=== PATIENT | female | born 1925 | race Caucasian/White ===

== ENCOUNTER 2016-10-02 09:43 | Inpatient (IN) | payer MEDICARE, BC ==
[~2016-10-02 09:43] MED LIST: ACTONEL35 MG PO; ALDACTAZIDE 251 EAC1 PO; ASPIRIN EC81 MG PO; CITRACAL200 MG PO; FISH OIL + D31 EACH PO; LOPRESSOR25 MG/TA1 PO; VITAMIN D1000 UNIT PO; ZINC50 M2 PO; [UNRECOGNIZED DRUG - OTHER] OP
[2016-10-02 10:25] LABS: BASO % 0.1 % (0-2); EOS % 0.6 % (0-7); EOSINOPHIL ABSOLUTE COUNT 0.1 tho/cmm (0.0-0.7); HCT-HEMATOCRIT 40.5 % (34.0-49.0); HGB-HEMOGLOBIN 14.2 gm/dl (12.0-15.5); IMMATURE GRANULOCYTES ABSOLUTE 0.06 tho/cmm (0-0.03); IMMATURE GRANULOCYTES PERCENT 0.4 % (0-0.3); LYMPH % 12.6 % (20-45); MCH (MEAN CORPUSCULAR HGB) 32.6 pg (28.0-32.0); MCHC MEAN CORPUSCULAR HGB CONC 35.1 % (32.0-36.0); MCV (MEAN CELL VOLUME) 93.1 fl (82.0-96.0); MEAN PLATELET VOLUME 10.5 cmc (9.4-12.4); MONOCYTE ABSOLUTE COUNT 1.7 tho/cmm (0.0-1.2); NEUTROPHIL ABSOLUTE COUNT 11.8 tho/cmm (1.6-8.0); NEUTROPHIL-AUTOMATED 11.8 tho/cmm (1.6-8.0); NEUTROPHILS % 75.3 % (40-80); PLATELET COUNT 281 tho/cmm (150-450); RED BLOOD COUNT 4.35 mil/cmm (4.00-5.20); RED CELL DISTRIBUTION WIDTH 12.5 % (12.4-16.4); WHITE BLOOD COUNT 15.7 tho/cmm (4.0-10.0)
[2016-10-02] MEDS ORDERED: FOSAMAX70 M1 PO (10:25)
[2016-10-02 10:43] LABS: ANION GAP 18 mmol/L (0-20); BLOOD UREA NITROGEN 27 mg/dl (6-24); CALCIUM 9.7 mg/dl (8.5-10.5); CARBON DIOXIDE-VENOUS 21 mmol/L (22-32); CHLORIDE 99 mmol/l (96-110); CREATININE 1.54 mg/dl (0.50-1.10); GLUCOSE 127 mg/dL (70-110); POTASSIUM 4.1 mmol/L (3.7-5.1); SODIUM 134 mmol/L (135-145); eGFR VALUE FOR BLACK 34 mL/Min
[2016-10-02 11:03] LABS: URINE BILIRUBIN NEGATIVE (NEG); URINE BLOOD MODERATE (NEG); URINE GLUCOSE (UA) NEGATIVE (NEG); URINE KETONE NEGATIVE (NEG); URINE LEUKOCYTE ESTERASE POSITIVE (NEG); URINE NITRITE POSITIVE (NEG); URINE PH 6.5 (5.0-8.0); URINE PROTEIN MODERATE (NEG)
[2016-10-02 11:04] LABS: URINE COLOR YELLOW
[2016-10-02 11:05] LABS: URINE APPEARANCE HAZY
[2016-10-02 11:10] LABS: URINE WBC 50-60 /[HPF] (0-5)
[2016-10-02 11:11] LABS: URINE EPITHELIAL CELLS 15-20 /[HPF] (0-10)
[2016-10-02 11:12] LABS: URINE BACTERIA 1+
[2016-10-02] MEDS ORDERED: BETAGAN5 M1 EACH EYE (11:44)
[2016-10-02] MEDS ORDERED: CULTURELLE CAP1 EAC1 PO (15:00)
[2016-10-02] MEDS ORDERED: CALCIUM CARBON500 M2 PO (15:00)
[2016-10-02] MEDS ORDERED: ZYRTEC10 M7 PO (15:01)
[2016-10-03] MEDS ORDERED: TYLENOL325 M2 PO (10:31)
[2016-10-03] MEDS ORDERED: LEVAQUIN250 M3 PO (10:33)
== END 2016-10-03 10:30 | DRG 243 ==
LOC: EDMED 09:43 → EMR2 14:43 → CAR1 14:44
PROVIDERS: Emergency Medicine; Internal Medicine Interventional Cardiology; ADMIT Internal Medicine Clinical Cardiac Electrophysiology
PROC: 02HK3JZ Insertion of Pacemaker Lead into Right Ventricle, Percutaneous Approach (ICD-10-PCS; principal; 2016-10-02)
PROC: 0JH606Z Insertion of Pacemaker, Dual Chamber into Chest Subcutaneous Tissue and Fascia, Open Approach (ICD-10-PCS; principal; 2016-10-02)
PROC: 02H63JZ Insertion of Pacemaker Lead into Right Atrium, Percutaneous Approach (ICD-10-PCS; principal; 2016-10-02)
PROC: 4B02XSZ Measurement of Cardiac Pacemaker, External Approach (ICD-10-PCS; principal; 2016-10-02)
DX: I44.1 Atrioventricular block, second degree (principal); N39.0 Urinary tract infection, site not specified; I44.7 Left bundle-branch block, unspecified; I10 Essential (primary) hypertension; E78.5 Hyperlipidemia, unspecified; H40.9 Unspecified glaucoma; Z79.82 Long term (current) use of aspirin
CPT/HCPCS: C1785; C1898; J0690; J1956; J2250; J2405; J2550; J3010